=== PATIENT | male | born 1975 | race African-American/Black ===

== ENCOUNTER 2017-07-04 11:04 | Emergency (ER) | payer SELFPAY ==
[~2017-07-04] VITALS: Ht 190.5 cm; Wt 140.0 kg
[~2017-07-04 11:04] MED LIST: AMOXICILLIN 50500 MG PO; AMOXICILLIN875 MG PO; BLOOD PRESSURE PILL; CELEXA40 MG; CLEOCIN HC150 MG/CAP PO; CLINDAMYCIN150 MG PO; COREG 6.256.25 MG/TA PO; COREG12.5 MG PO; FLEXERIL 1010 MG/TAB PO; LORTAB 5/500 501 TAB PO; NAPROSYN500 MG PO; NO HOME MEDICATIONS; NORCO 325 MG-51 TAB PO; NORCO 325 MG-7.1 TAB PO; PERCOCET 325 MG1 TA2 PO; PROZAC40 MG PO; WELLBUTRIN 75MG75 MG PO; ZITHROMAX Z PA250 MG PO
[2017-07-04 11:24] VITALS: TEMP 98
[2017-07-04 12:03] LABS: BASO % 0.3 % (0.0-2.0); EOS # 0.2 (0.0-0.7); EOS % 3.4 % (0-4.0); GRAN # 3.3 (1.4-6.5); GRAN % 55.9 % (42.2-75.2); HEMATOCRIT 51.7 % (42.0-52.0); HEMOGLOBIN 16.5 g/dl (13.5-18.0); LYMPH # 1.8 (1.2-3.4); LYMPH % 30.9 % (20.0-51.0); MEAN CELL VOLUME 96 fl (80.0-100.0); MEAN CORPUSCULAR HEMOGLOBIN 31 pg (27.0-31.0); MEAN CORPUSCULAR HGB CONC 32 g/dl (33.0-37.0); MEAN PLATELET VOLUME 10.1 fl (7.4-10.4); MONO # 0.5 (0.1-0.6); MONO % 9.3 % (1.7-9.3); PLATELET COUNT 162 K/mm3 (130-400); RED BLOOD COUNT 5.41 M/mm3 (4.20-5.60); REDCELL DISTRIBUTION WIDTH-CV 15.2 % (11.5-14.5)
[2017-07-04] MEDS ORDERED: KLOR-CON M2020 MEQ PO (12:11)
[2017-07-04] MEDS ORDERED: NEURONTIN300 MG/CAP PO (12:11)
[2017-07-04] MEDS ORDERED: COREG 25MG25 MG/TAB PO (12:11)
[2017-07-04] MEDS ORDERED: ZOCOR 20MG20 MG PO (12:12)
[2017-07-04] MEDS ORDERED: GLUCOPHAGE500 MG/TAB PO (12:12)
[2017-07-04] MEDS ORDERED: PROZAC40 MG PO (12:13)
[2017-07-04] MEDS ORDERED: LASIX 40MG TABL40 MG PO (12:13)
[2017-07-04 12:14] LABS: ALANINE AMINOTRANSFERASE 41 U/L (21-72); ALBUMIN 4.3 gm/dL (3.5-5.0); ALKALINE PHOSPHATASE 85 U/L (50-136); ANION GAP 11 mmol/L (7-16); AST,SGOT 23 U/L (15-37); BILIRUBIN,TOTAL 0.9 mg/dL (0.0-1.0); BLOOD UREA NITROGEN 11 mg/dL (9-20); C-REACTIVE PROTEIN 0.6 mg/dL (0.0-0.9); CALCIUM 8.9 mg/dL (8.4-10.2); CARBON DIOXIDE 31 mmol/L (22-30); CHLORIDE 96 mmol/L (98-107); CREATININE, serum 0.78 mg/dL (0.66-1.25); GLUCOSE 129 mg/dL (74-106); POTASSIUM 4.4 mmol/L (3.4-5.0); SODIUM 139 mmol/L (137-145); TOTAL PROTEIN 7.9 gm/dL (6.4-8.2)
[2017-07-04] MEDS ORDERED: ADALAT CC30 MG PO (12:14)
[2017-07-04 12:26] LABS: TROPONIN-I < 0.012 ng/mL (0.000-0.034)
[2017-07-04] MEDS ORDERED: K-DUR20 MEQ PO (13:46)
[2017-07-04] MEDS ORDERED: ZITHROMAX 250M250 MG PO (13:46)
[2017-07-04] MEDS ORDERED: LASIX 20MG TABL20 MG PO (13:46)
[2017-07-04 14:23] VITALS: BP 138/81; PULSE 72
== END 2017-07-04 14:50 | disposition home or self-care (01) ==
LOC: COL.ER 11:04
PROVIDERS: Emergency Medicine
DX: J20.9 Acute bronchitis, unspecified (principal); R60.0 Localized edema; I10 Essential (primary) hypertension; E11.9 Type 2 diabetes mellitus without complications; E78.5 Hyperlipidemia, unspecified; F17.210 Nicotine dependence, cigarettes, uncomplicated; Z79.84 Long term (current) use of oral hypoglycemic drugs

== ENCOUNTER 2017-07-19 17:29 | Observation (INO) | payer OTHER ==
[2017-07-19] VITALS (130 sets, daily range): BP systolic 148; BP diastolic 97; PULSE 55; TEMP 97.4; O2SAT 89–100
[~2017-07-19] VITALS: Ht 190.7 cm; Wt 227.2 kg
[~2017-07-19 17:29] MED LIST changes: +ADALAT CC30 MG PO; +COREG 25MG25 MG/TAB PO; +GLUCOPHAGE500 MG/TAB PO; +K-DUR20 MEQ PO; +KLOR-CON M2020 MEQ PO; +LASIX 20MG TABL20 MG PO; +LASIX 40MG TABL40 MG PO; +NEURONTIN300 MG/CAP PO; +ZITHROMAX 250M250 MG PO; +ZOCOR 20MG20 MG PO
[2017-07-19 17:55] LABS: BASO % 0.6 % (0.0-2.0); EOS # 0.2 (0.0-0.7); EOS % 4.5 % (0-4.0); GRAN # 2.7 (1.4-6.5); GRAN % 50.2 % (42.2-75.2); HEMATOCRIT 49.1 % (42.0-52.0); HEMOGLOBIN 15.4 g/dl (13.5-18.0); LYMPH # 1.8 (1.2-3.4); LYMPH % 33.8 % (20.0-51.0); MEAN CELL VOLUME 95 fl (80.0-100.0); MEAN CORPUSCULAR HEMOGLOBIN 30 pg (27.0-31.0); MEAN CORPUSCULAR HGB CONC 31 g/dl (33.0-37.0); MEAN PLATELET VOLUME 10.3 fl (7.4-10.4); MONO # 0.6 (0.1-0.6); MONO % 10.5 % (1.7-9.3); PLATELET COUNT 197 K/mm3 (130-400); RED BLOOD COUNT 5.17 M/mm3 (4.20-5.60); REDCELL DISTRIBUTION WIDTH-CV 14.8 % (11.5-14.5)
[2017-07-19 18:08] LABS: ALANINE AMINOTRANSFERASE 43 U/L (21-72); ALKALINE PHOSPHATASE 77 U/L (50-136); ANION GAP 10 mmol/L (7-16); AST,SGOT 28 U/L (15-37); BILIRUBIN,TOTAL 0.7 mg/dL (0.0-1.0); BLOOD UREA NITROGEN 9 mg/dL (9-20); C-REACTIVE PROTEIN 0.9 mg/dL (0.0-0.9); CALCIUM 9.2 mg/dL (8.4-10.2); CARBON DIOXIDE 34 mmol/L (22-30); CHLORIDE 97 mmol/L (98-107); CREATININE, serum 0.81 mg/dL (0.66-1.25); GLUCOSE 173 mg/dL (74-106); SODIUM 141 mmol/L (137-145); TOTAL PROTEIN 7.5 gm/dL (6.4-8.2)
[2017-07-19 18:21] LABS: TROPONIN-I < 0.012 ng/mL (0.000-0.034)
[2017-07-19 19:39] LABS: ARTERIAL BLD GAS O2 SATURATION 90.7 % (92-100); ARTERIAL BLD GAS TCO2 CT 38.6; ARTERIAL BLOOD GAS BASE EXCESS 7.9 (-2-2); ARTERIAL BLOOD GAS HCO3 36.5 meq/L (22-26); ARTERIAL BLOOD GAS PCO2 67.5 mmHg (35-45); ARTERIAL BLOOD GAS PO2 57.6 mmHg (80-100); ARTERIAL BLOOD GAS pH 7.35 (7.35-7.45)
[2017-07-19 21:49] LABS: PROTHROMBIN TIME 11.2 SECONDS (9.7-12.8)
[2017-07-19 21:52] LABS: PARTIAL THROMBOPLASTIN TIME 35.2 SECONDS (26.0-37.0)
[2017-07-20] VITALS (795 sets, daily range): BP systolic 122–148; BP diastolic 58–98; PULSE 41–77; TEMP 97.8–99; O2SAT 84–100
[2017-07-20 00:06] LABS: ARTERIAL BLD GAS O2 SATURATION 94.2 % (92-100); ARTERIAL BLD GAS TCO2 CT 36.6; ARTERIAL BLOOD GAS BASE EXCESS 8.1 (-2-2); ARTERIAL BLOOD GAS HCO3 34.9 meq/L (22-26); ARTERIAL BLOOD GAS PCO2 55.7 mmHg (35-45); ARTERIAL BLOOD GAS PO2 68.6 mmHg (80-100); ARTERIAL BLOOD GAS pH 7.42 (7.35-7.45)
[2017-07-20 05:44] LABS: BASO % 0.4 % (0.0-2.0); EOS # 0.2 (0.0-0.7); EOS % 4.4 % (0-4.0); GRAN # 2.7 (1.4-6.5); GRAN % 50.2 % (42.2-75.2); HEMATOCRIT 51.3 % (42.0-52.0); HEMOGLOBIN 15.6 g/dl (13.5-18.0); LYMPH # 1.8 (1.2-3.4); LYMPH % 33.3 % (20.0-51.0); MEAN CELL VOLUME 99 fl (80.0-100.0); MEAN CORPUSCULAR HEMOGLOBIN 30 pg (27.0-31.0); MEAN CORPUSCULAR HGB CONC 30 g/dl (33.0-37.0); MEAN PLATELET VOLUME 10.6 fl (7.4-10.4); MONO # 0.6 (0.1-0.6); MONO % 11.5 % (1.7-9.3); PLATELET COUNT 201 K/mm3 (130-400); REDCELL DISTRIBUTION WIDTH-CV 14.9 % (11.5-14.5)
[2017-07-20 05:57] LABS: ALANINE AMINOTRANSFERASE 39 U/L (21-72); ALBUMIN 3.9 gm/dL (3.5-5.0); ALKALINE PHOSPHATASE 90 U/L (50-136); ANION GAP 7 mmol/L (7-16); AST,SGOT 26 U/L (15-37); BILIRUBIN,TOTAL 0.9 mg/dL (0.0-1.0); BLOOD UREA NITROGEN 8 mg/dL (9-20); CALCIUM 9.1 mg/dL (8.4-10.2); CARBON DIOXIDE 40 mmol/L (22-30); CHLORIDE 93 mmol/L (98-107); CHOLESTEROL 291 mg/dL (120-200); CHOLESTEROL RISK RATIO 12.6; CREATININE, serum 0.95 mg/dL (0.66-1.25); GLUCOSE 128 mg/dL (74-106); HDL CHOLESTEROL 23 mg/dL; LDL CHOLESTEROL 219 mg/dL; POTASSIUM 4.2 mmol/L (3.4-5.0); SODIUM 140 mmol/L (137-145); TOTAL PROTEIN 7.8 gm/dL (6.4-8.2); TRIGLYCERIDE 246 mg/dL
[2017-07-20 06:08] LABS: TROPONIN-I < 0.012 ng/mL (0.000-0.034)
[2017-07-21] VITALS (7 sets, daily range): BP systolic 105–128; BP diastolic 64–75; PULSE 47–57; TEMP 97–98.6
[2017-07-21 07:40] LABS: BASO % 0.3 % (0.0-2.0); EOS # 0.2 (0.0-0.7); GRAN # 3.3 (1.4-6.5); GRAN % 54.9 % (42.2-75.2); HEMATOCRIT 50.7 % (42.0-52.0); HEMOGLOBIN 15.7 g/dl (13.5-18.0); LYMPH % 32.4 % (20.0-51.0); MEAN CELL VOLUME 97 fl (80.0-100.0); MEAN CORPUSCULAR HEMOGLOBIN 30 pg (27.0-31.0); MEAN CORPUSCULAR HGB CONC 31 g/dl (33.0-37.0); MEAN PLATELET VOLUME 10.5 fl (7.4-10.4); MONO # 0.5 (0.1-0.6); MONO % 8.1 % (1.7-9.3); PLATELET COUNT 205 K/mm3 (130-400); RED BLOOD COUNT 5.22 M/mm3 (4.20-5.60); REDCELL DISTRIBUTION WIDTH-CV 14.7 % (11.5-14.5)
[2017-07-21 07:58] LABS: CALCIUM 8.8 mg/dL (8.4-10.2); CREATININE, serum 0.87 mg/dL (0.66-1.25); POTASSIUM 3.6 mmol/L (3.4-5.0)
[2017-07-21] MEDS ORDERED: SEROQUEL 200MG200 MG PO (08:01)
[2017-07-21] MEDS ORDERED: SEROQUEL 1100 MG/TAB PO (08:02)
[2017-07-22] VITALS (8 sets, daily range): BP systolic 121–146; BP diastolic 74–93; PULSE 60–87; TEMP 97.7–98.4
[2017-07-22] MEDS ORDERED: NITROSTAT0.4 MG/TAB SL (11:09)
[2017-07-22] MEDS ORDERED: LIPITOR 40MG TA40 MG PO (11:09)
[2017-07-22] MEDS ORDERED: COREG 25MG25 MG/TAB PO (11:15)
[2017-07-22] MEDS ORDERED: ASPI325T6 PO (11:15)
== END 2017-07-22 16:10 | disposition home or self-care (01) ==
LOC: COL.ER 17:29 → MEDICAL 19:20 → ICU 20:10 → MEDICAL 07-20 14:00
PROVIDERS: Emergency Medicine; Internal Medicine; Nurse Practitioner Family
DX: R06.02 Shortness of breath (principal); R07.89 Other chest pain; R60.0 Localized edema; I10 Essential (primary) hypertension; E78.5 Hyperlipidemia, unspecified; E11.9 Type 2 diabetes mellitus without complications; F31.9 Bipolar disorder, unspecified; M86.9 Osteomyelitis, unspecified; E87.2 Acidosis; E66.01 Morbid (severe) obesity due to excess calories; I07.1 Rheumatic tricuspid insufficiency; F17.210 Nicotine dependence, cigarettes, uncomplicated; R09.02 Hypoxemia; Z79.4 Long term (current) use of insulin; Z79.84 Long term (current) use of oral hypoglycemic drugs; Z88.2 Allergy status to sulfonamides; Z88.0 Allergy status to penicillin; Z88.1 Allergy status to other antibiotic agents; Z79.82 Long term (current) use of aspirin; Z89.429 Acquired absence of other toe(s), unspecified side; Z80.0 Family history of malignant neoplasm of digestive organs; Z82.61 Family history of arthritis; Z83.3 Family history of diabetes mellitus; Z82.49 Family history of ischemic heart disease and other diseases of the circulatory system; Z82.0 Family history of epilepsy and other diseases of the nervous system
CPT/HCPCS: 99223-AI; 99232-AI; A9502; G0378; J1650; J1940; J2785; Q9967

== ENCOUNTER 2018-04-30 20:58 | Emergency (ER) | payer SELFPAY ==
[~2018-04-30] VITALS: Ht 193 cm; Wt 150.0 kg
[~2018-04-30 20:58] MED LIST changes: +ASPI325T6 PO; +LIPITOR 40MG TA40 MG PO; +NITROSTAT0.4 MG/TAB SL; +SEROQUEL 1100 MG/TAB PO; +SEROQUEL 200MG200 MG PO
[2018-04-30 21:03] VITALS: BP 139/92; TEMP 97.6
[2018-04-30] MEDS ORDERED: NEURONTIN600 MG/TAB PO (21:32)
[2018-04-30] MEDS ORDERED: COREG 25MG25 MG/TAB PO (21:32)
[2018-04-30] MEDS ORDERED: PROZAC40 MG PO (21:59)
[2018-04-30] MEDS ORDERED: GLUCOPHAGE1000 MG PO (21:59)
[2018-04-30 22:45] VITALS: PULSE 76
== END 2018-04-30 22:45 | disposition home or self-care (01) ==
LOC: COL.ER 20:58
DX: R11.0 Nausea (principal); R21 Rash and other nonspecific skin eruption; E11.65 Type 2 diabetes mellitus with hyperglycemia; I10 Essential (primary) hypertension; Z79.82 Long term (current) use of aspirin; Z79.84 Long term (current) use of oral hypoglycemic drugs

== ENCOUNTER 2018-05-17 20:32 | Emergency (ER) | payer SELFPAY ==
[~2018-05-17] VITALS: Ht 193 cm; Wt 150.0 kg
[~2018-05-17 20:32] MED LIST changes: +GLUCOPHAGE1000 MG PO; +NEURONTIN600 MG/TAB PO
[2018-05-17 20:38] VITALS: BP 121/83; TEMP 98.1
[2018-05-17 21:02] LABS: BASO % 0.6 % (0.0-2.0); EOS # 0.2 (0.0-0.7); EOS % 2.6 % (0-4.0); GRAN # 2.9 (1.4-6.5); GRAN % 47.2 % (42.2-75.2); HEMATOCRIT 50.1 % (42.0-52.0); HEMOGLOBIN 16.5 g/dl (13.5-18.0); LYMPH # 2.6 (1.2-3.4); LYMPH % 41.3 % (20.0-51.0); MEAN CELL VOLUME 90 fl (80.0-100.0); MEAN CORPUSCULAR HEMOGLOBIN 30 pg (27.0-31.0); MEAN CORPUSCULAR HGB CONC 33 g/dl (33.0-37.0); MEAN PLATELET VOLUME 11.4 fl (7.4-10.4); MONO # 0.5 (0.1-0.6); MONO % 8.1 % (1.7-9.3); PLATELET COUNT 175 K/mm3 (130-400); RED BLOOD COUNT 5.58 M/mm3 (4.20-5.60); REDCELL DISTRIBUTION WIDTH-CV 13.1 % (11.5-14.5)
[2018-05-17 21:20] LABS: BILIRUBIN,TOTAL 1.3 mg/dL (0.0-1.0); CALCIUM 9.4 mg/dL (8.4-10.2); CREATININE, serum 0.94 mg/dL (0.66-1.25); POTASSIUM 4.2 mmol/L (3.4-5.0); TOTAL PROTEIN 7.3 gm/dL (6.4-8.2)
[2018-05-17 21:42] LABS: COLLECTION METHOD CLEAN CATCH
[2018-05-17 21:47] LABS: MUCOUS Present /lpf; PH 6 (5-8); SQUAMOUS EPITHELIAL None Seen /hpf; URINE APPEARANCE Clear; URINE BACTERIA None Seen /hpf; URINE BILIRUBIN Negative (NEGATIVE); URINE BLOOD Negative (NEGATIVE); URINE COLOR Yellow; URINE GLUCOSE 3+ (NEGATIVE); URINE KETONE Negative (NEGATIVE); URINE LEUKOCYTE ESTERASE Negative (NEGATIVE); URINE NITRATE Negative (NEGATIVE); URINE PROTEIN(semi-quant) Negative (NEGATIVE); URINE RBC 0-2 /hpf
[2018-05-17] MEDS ORDERED: DIABETA 5MG5 MG/TAB PO (22:05)
[2018-05-18 01:20] VITALS: PULSE 70
== END 2018-05-18 01:20 | disposition home or self-care (01) ==
LOC: COL.ER 20:32
PROVIDERS: Emergency Medicine
DX: E11.65 Type 2 diabetes mellitus with hyperglycemia (principal); Z79.84 Long term (current) use of oral hypoglycemic drugs
CPT/HCPCS: J1815; J7030

== ENCOUNTER 2018-05-28 20:41 | Emergency (ER) | payer SELFPAY ==
[~2018-05-28] VITALS: Ht 193 cm; Wt 150.0 kg
[~2018-05-28 20:41] MED LIST changes: +DIABETA 5MG5 MG/TAB PO
[2018-05-28 20:44] VITALS: BP 179/100; TEMP 98
[2018-05-28] MEDS ORDERED: DOXYCYCLINE 10100 MG PO (21:30)
[2018-05-28 21:48] VITALS: PULSE 63
== END 2018-05-28 21:50 | disposition home or self-care (01) ==
LOC: COL.ER 20:41
DX: L03.031 Cellulitis of right toe (principal); E11.51 Type 2 diabetes mellitus with diabetic peripheral angiopathy without gangrene; Z79.84 Long term (current) use of oral hypoglycemic drugs

== ENCOUNTER 2018-06-26 23:52 | Emergency (ER) | payer SELFPAY ==
[~2018-06-26] VITALS: Ht 193 cm; Wt 150.0 kg
[~2018-06-26 23:52] MED LIST changes: +DOXYCYCLINE 10100 MG PO
[2018-06-27 00:01] VITALS: BP 144/73; PULSE 63; TEMP 98.7
[2018-06-27] MEDS ORDERED: PROZAC40 MG PO (01:17)
[2018-06-27] MEDS ORDERED: OMNICEF 300MG300 MG PO (02:06)
[2018-06-27] MEDS ORDERED: DOXYCYCLINE 10100 MG PO (02:06)
== END 2018-06-27 02:40 | disposition home or self-care (01) ==
LOC: COL.ER 23:52
DX: E11.621 Type 2 diabetes mellitus with foot ulcer (principal); F17.210 Nicotine dependence, cigarettes, uncomplicated; Z79.84 Long term (current) use of oral hypoglycemic drugs

== ENCOUNTER 2018-07-13 21:42 | Emergency (ER) | payer SELFPAY ==
[~2018-07-13] VITALS: Ht 193 cm; Wt 149.5 kg
[~2018-07-13 21:42] MED LIST changes: +CLEOCIN HCL300 MG PO; +OMNICEF 300MG300 MG PO
[2018-07-13 21:44] VITALS: BP 180/98; PULSE 96; TEMP 98
== END 2018-07-13 22:27 | disposition home or self-care (01) ==
LOC: COL.ER 21:42
DX: M79.672 Pain in left foot (principal); E11.9 Type 2 diabetes mellitus without complications; Z89.422 Acquired absence of other left toe(s); Z79.84 Long term (current) use of oral hypoglycemic drugs; F17.210 Nicotine dependence, cigarettes, uncomplicated

== ENCOUNTER 2018-07-20 21:30 | Emergency (ER) | payer SELFPAY ==
[~2018-07-20] VITALS: Ht 193 cm; Wt 149.5 kg
[2018-07-21 00:06] VITALS: BP 165/102; PULSE 81
== END 2018-07-21 00:12 | disposition home or self-care (01) ==
LOC: COL.ER 21:30
DX: M25.531 Pain in right wrist (principal); E11.9 Type 2 diabetes mellitus without complications; I10 Essential (primary) hypertension; F41.9 Anxiety disorder, unspecified; F32.9 Major depressive disorder, single episode, unspecified; F17.210 Nicotine dependence, cigarettes, uncomplicated; Z79.84 Long term (current) use of oral hypoglycemic drugs

== ENCOUNTER 2018-09-01 20:32 | Emergency (ER) | payer MEDICAID ==
[~2018-09-01] VITALS: Ht 193 cm; Wt 150.0 kg
[2018-09-01 20:50] VITALS: BP 138/79; PULSE 72; TEMP 97.7
[2018-09-01] MEDS ORDERED: NORCO 325 MG-51 TAB PO (21:39)
[2018-09-01] MEDS ORDERED: CLEOCIN HCL300 MG PO (21:39)
== END 2018-09-01 23:23 | disposition home or self-care (01) ==
LOC: COL.ER 20:32
DX: K02.9 Dental caries, unspecified (principal); E11.9 Type 2 diabetes mellitus without complications; I10 Essential (primary) hypertension; E66.9 Obesity, unspecified; F31.9 Bipolar disorder, unspecified; E78.5 Hyperlipidemia, unspecified; F17.210 Nicotine dependence, cigarettes, uncomplicated; Z88.0 Allergy status to penicillin; Z88.1 Allergy status to other antibiotic agents; Z79.84 Long term (current) use of oral hypoglycemic drugs

== ENCOUNTER 2018-09-25 10:20 | Emergency (ER) | payer MEDICAID ==
[~2018-09-25] VITALS: Ht 193 cm; Wt 150.0 kg
[2018-09-25 10:28] VITALS: TEMP 98.1
[2018-09-25] MEDS ORDERED: DIABETA 5MG5 MG/TAB PO (11:07)
[2018-09-25] MEDS ORDERED: NEURONTIN600 MG/TAB PO (11:07)
[2018-09-25 12:14] VITALS: BP 140/91; PULSE 84
== END 2018-09-25 12:15 | disposition home or self-care (01) ==
LOC: COL.ER 10:20
DX: G43.909 Migraine, unspecified, not intractable, without status migrainosus (principal); E11.9 Type 2 diabetes mellitus without complications; I10 Essential (primary) hypertension; F17.210 Nicotine dependence, cigarettes, uncomplicated; Z87.442 Personal history of urinary calculi; Z79.84 Long term (current) use of oral hypoglycemic drugs
CPT/HCPCS: J1200; J1885; J2765; J7030

== ENCOUNTER 2018-10-05 20:37 | Inpatient (IN) | payer MEDICAID ==
[~2018-10-05] VITALS: Ht 193 cm; Wt 159.3 kg
[2018-10-05 21:41] LABS: BASO % 0.4 % (0.0-2.0); EOS # 0.2 (0.0-0.7); EOS % 2.8 % (0-4.0); GRAN % 55.1 % (42.2-75.2); HEMOGLOBIN 16.3 g/dl (13.5-18.0); LYMPH # 2.2 (1.2-3.4); LYMPH % 30.1 % (20.0-51.0); MEAN CELL VOLUME 95 fl (80.0-100.0); MEAN CORPUSCULAR HEMOGLOBIN 29 pg (27.0-31.0); MEAN CORPUSCULAR HGB CONC 31 g/dl (33.0-37.0); MEAN PLATELET VOLUME 10.3 fl (7.4-10.4); MONO # 0.8 (0.1-0.6); PLATELET COUNT 178 K/mm3 (130-400); RED BLOOD COUNT 5.54 M/mm3 (4.20-5.60); REDCELL DISTRIBUTION WIDTH-CV 15.5 % (11.5-14.5)
[2018-10-05 21:44] LABS: HEMATOCRIT 52.8 % (42.0-52.0)
[2018-10-05 21:54] LABS: ALANINE AMINOTRANSFERASE 21 U/L (21-72); ALKALINE PHOSPHATASE 86 U/L (50-136); ANION GAP 7 mmol/L (7-16); AST,SGOT 23 U/L (15-37); BILIRUBIN,TOTAL 0.7 mg/dL (0.0-1.0); BLOOD UREA NITROGEN 11 mg/dL (9-20); C-REACTIVE PROTEIN 1.2 mg/dL (0.0-0.9); CARBON DIOXIDE 38 mmol/L (22-30); CHLORIDE 95 mmol/L (98-107); CREATININE, serum 0.88 (0.66-1.25); GLUCOSE 75 mg/dL (74-106); POTASSIUM 4.4 mmol/L (3.4-5.0); SODIUM 141 mmol/L (137-145)
[2018-10-05 21:54] LABS: ARTERIAL BLD GAS O2 SATURATION 90.4 % (92-100); ARTERIAL BLD GAS TCO2 CT 37.8; ARTERIAL BLOOD GAS BASE EXCESS 7.7 (-2-2); ARTERIAL BLOOD GAS HCO3 35.8 meq/L (22-26); ARTERIAL BLOOD GAS PCO2 63.4 mmHg (35-45); ARTERIAL BLOOD GAS PO2 58.1 mmHg (80-100); ARTERIAL BLOOD GAS pH 7.37 (7.35-7.45)
[2018-10-05 22:05] LABS: TROPONIN-I < 0.012 ng/mL (0.000-0.035)
[2018-10-06] VITALS (1312 sets, daily range): BP systolic 102–163; BP diastolic 61–105; PULSE 54–117; TEMP 97.7–97.9; O2SAT 78–100
--- NOTE | 2018-10-06 | NUR ---
Received phone report from Bertrand AMARAL in ED.
--- NOTE | 2018-10-06 00:10 | NUR ---
Pt arrived via stretcher from ED X1 staff assist. Pt appears to be lethargic and is on 4L NC at this time. Pt still in street clothes so on transfer to ICU bed pt was switched to hospital gown although refused to remove shorts. Pt is partially edentulous.
[2018-10-06] MEDS ORDERED: ADALAT CC30 MG PO (00:29)
--- NOTE | 2018-10-06 01:00 | NUR ---
When talking to the patient while obtaining Admission B assessment history pt would be noted resting in bed with eyes closed and after a few moments pts name would be said in order to obtain attention or pt would open eyes and see this nurse and ask "what" with eyes open wide. This happened multiple times although pt remained A&O to questions through out.
--- NOTE | 2018-10-06 01:30 | NUR ---
Upon questioning the pt regarding suicide assessment questions pt reported "every day" in response to thoughts of wanting to end ones life. This nurse asked if there was a plan in action and pt replied "yes but not one I am able to afford." This nurse then inquired about reason behind feelings and pt replied "pain, family, my kids live away and I cant talk to them." Pt denied taking any current medications for Bipolar. Stated to get them it was to difficult and "you have to talk to people like go to therapy and wait another 30 days before you get anything."
[2018-10-06 04:18] LABS: ARTERIAL BLD GAS TCO2 CT 43.6; ARTERIAL BLOOD GAS BASE EXCESS 9.4 (-2-2); ARTERIAL BLOOD GAS HCO3 40.8 meq/L (22-26); ARTERIAL BLOOD GAS PO2 78.3 mmHg (80-100); ARTERIAL BLOOD GAS pH 7.26 (7.35-7.45)
[2018-10-06 04:33] LABS: ARTERIAL BLOOD GAS PCO2 92.5 mmHg (35-45)
--- NOTE | 2018-10-06 04:55 | NUR ---
Pt was noted to not have Bipap mask off. Pt expressed pain and frustration about the pain experienced with Bipap air on eyes and hurting teeth and "nothing is being done about it". Pt also reported that "at [facility] I have never had this problem. They just do what needs to be done." This nurse then asked the pt if at [facility] the teeth pain was like this and pt reported "not this bad, I was there when they cut off my toes." Pt was asked if dentist has been consulted for teeth and pt reported "I havent been able to get in to see anyone."
--- NOTE | 2018-10-06 05:19 | NUR ---
PLACE PT ON BIPAP IN ER AFTER FIRST ABG RESULTS. PT WAS ON 03/25 RR 18. PT TOLERATES WELL IN ER. PT IS TRANSFERED FROM ER TO ICU. HE WANTS TO EAT, HE WAS ON HFNC 6L. IT LASTED FOR AN HOUR. RT PLACED PT BACK ON BIPAP AFTER HE ATE. REPEAT ANOTHER ABG AROUND 4PM .PH 7.26 CO2 92 . NURSE PRACTIONNER NOTIFIED AND RT CHANGE BIPAP SETTING 09/02 R 18. PT IS NOT COMPLIANT WITH BIPAP,BUT HE IS ASKING MORE ABOUT PAIN MED. ENCOURAGE PT TO WEAR BIPAP . PAIN MED WAS GIVEN BY NURSE .PT IS WILLING TO WEAR BIPAP. HE IS ON NOW. WILL REPEAT ABG. RT TRIED TO GET HOLD OF EC[facility],BUT WAS BUSY ON PHONE. WAITING FOR CALL BACK
[2018-10-06 05:30] LABS: BASO % 0.3 % (0.0-2.0); EOS # 0.2 (0.0-0.7); EOS % 2.6 % (0-4.0); GRAN # 4.1 (1.4-6.5); GRAN % 59.2 % (42.2-75.2); HEMATOCRIT 51.9 % (42.0-52.0); LYMPH % 29.4 % (20.0-51.0); MEAN CELL VOLUME 95 fl (80.0-100.0); MEAN CORPUSCULAR HEMOGLOBIN 29 pg (27.0-31.0); MEAN CORPUSCULAR HGB CONC 31 g/dl (33.0-37.0); MEAN PLATELET VOLUME 10.4 fl (7.4-10.4); MONO # 0.6 (0.1-0.6); MONO % 8.2 % (1.7-9.3); PLATELET COUNT 181 K/mm3 (130-400); RED BLOOD COUNT 5.44 M/mm3 (4.20-5.60); REDCELL DISTRIBUTION WIDTH-CV 15.7 % (11.5-14.5)
[2018-10-06 05:39] LABS: CALCIUM 8.9 mg/dL (8.4-10.2); CHOLESTEROL RISK RATIO 11.7; CREATININE, serum 0.89 (0.66-1.25)
[2018-10-06 06:06] LABS: ARTERIAL BLD GAS O2 SATURATION 90.4 % (92-100); ARTERIAL BLD GAS TCO2 CT 40.3; ARTERIAL BLOOD GAS BASE EXCESS 8.1 (-2-2); ARTERIAL BLOOD GAS HCO3 37.9 meq/L (22-26); ARTERIAL BLOOD GAS PO2 61.3 mmHg (80-100); ARTERIAL BLOOD GAS pH 7.32 (7.35-7.45)
[2018-10-06 06:07] LABS: ARTERIAL BLOOD GAS PCO2 75.5 mmHg (35-45)
--- NOTE | 2018-10-06 07:00 | NUR ---
Report provided to Domo AMARAL. Pt resting quietly on the Bipap at this time.
--- NOTE | 2018-10-06 07:51 | NUR ---
Shift assessment complete at this time. Plan of care reviewed at bedside with patient. Additional time taken to address any other needs or concerns. Pt reports mild to moderate pain at an intensity of 4-5/10. Pt reports that a 4 is a tolerable goal. Pt falls asleep easily mid conversation with this RN. Pt has not voided since arrival to unit. Pt states that he does not feel that he has to void at this time, but is willing to attempt to void in an hour. Vitals stable at this time and afebrile. Bed in low and locked position, call light within reach. Will continue to monitor.
--- NOTE | 2018-10-06 10:54 | NUR ---
Bladder scan noted 490 mL of urine in bladder. Pt states he does not feel the need to void at this time. Reported findings to Dr. Loaiza as requested. Provider gave verbal order to place jimenez catheter. Pt refused jiemnez catheter placement. Provider aware of refusal, will continue to monitor.
[2018-10-06 11:05] LABS: ARTERIAL BLD GAS O2 SATURATION 96.3 % (92-100); ARTERIAL BLD GAS TCO2 CT 35.7; ARTERIAL BLOOD GAS BASE EXCESS 6.2 (-2-2); ARTERIAL BLOOD GAS HCO3 33.8 meq/L (22-26); ARTERIAL BLOOD GAS PCO2 60.4 mmHg (35-45); ARTERIAL BLOOD GAS PO2 82.4 mmHg (80-100); ARTERIAL BLOOD GAS pH 7.37 (7.35-7.45)
--- NOTE | 2018-10-06 11:15 | NUR ---
SW met with the patient to discuss a discharge plan. The pt lives in [place] with three cousins. The pt does on use DME and reports independence with ADLs. The pt does not have a PCP and receives his medications from [facility]. The pt may need a voucher if insurance does not cover his medications at discharge. The pt does not have advanced directives in the EMR and was not interested in obtaining a DPOA-HC form. The pt plans to return home upon discharge. The pt's cousin Krissy Andrews will provide transportation. SW to provide a list physicians and clinic to the patient. SW will continue to follow to assist with any discharge needs. Krissy Andrews (cousin)
--- NOTE | 2018-10-06 12:00 | NUR ---
Shift reassessment complete at this time. No changes from previous assessment. Pt still feels like he does not need to void. Will continue to monitor per direction of Dr. Loaiza. Vitals stable at this time. Pt reports breathing is improving while on Bi-Pap. Reports back/neck pain as tolerable. Previously administered Toradol helping. Bed in low position, call light within reach. Will continue to monitor.
--- NOTE | 2018-10-06 13:00 | NUR ---
With sterile technique right upper arm PICC dressing change done and insertion site cleansed with chloraprep x 1, catheter pulled to 3 cm marking on catheter for a total of 4 cm pulled back. skin prep, stat lock, chlorhexidine impregnated disk applied, and tegaderm applied. no signs or symptoms of IV complications noted. no concerns voiced. re-wrapped with isaac to protect catheter.
--- NOTE | 2018-10-06 16:00 | NUR ---
Shift reassessment complete at this time. No changes noted from previous assessments. Vitals stable. Pt reports oxygenation continuing to improve. Now on 45% BiPap. Reports pain as tolerable. Declines any further intervention. Pt states he will need to void soon. Will continue to monitor. Bed in low poisition, call light within reach.
--- NOTE | 2018-10-06 19:09 | NUR ---
Bedside report given to MUNIR Ramos.
--- NOTE | 2018-10-06 19:10 | NUR ---
Report received from Domo AMARAL.
[2018-10-07] VITALS (430 sets, daily range): BP systolic 111–152; BP diastolic 65–87; PULSE 89–105; TEMP 97.5–98.6; O2SAT 63–100
--- NOTE | 2018-10-07 02:20 | NUR ---
Pt resting in bed with television on. Cell phone plugged in per pts request. Pt started talking to this nurse approximately 0140 following assessment and medication administration and this nurse excused herself following discussion of ex, kids, and the of mother, sister, grandmother and father.
[2018-10-07 05:39] LABS: BASO % 0.1 % (0.0-2.0); GRAN # 10.2 (1.4-6.5); GRAN % 88.7 % (42.2-75.2); HEMATOCRIT 49.9 % (42.0-52.0); HEMOGLOBIN 15.6 g/dl (13.5-18.0); LYMPH % 8.6 % (20.0-51.0); MEAN CELL VOLUME 93 fl (80.0-100.0); MEAN CORPUSCULAR HEMOGLOBIN 29 pg (27.0-31.0); MEAN CORPUSCULAR HGB CONC 31 g/dl (33.0-37.0); MEAN PLATELET VOLUME 10.6 fl (7.4-10.4); MONO # 0.2 (0.1-0.6); PLATELET COUNT 198 K/mm3 (130-400); RED BLOOD COUNT 5.38 M/mm3 (4.20-5.60); REDCELL DISTRIBUTION WIDTH-CV 15.1 % (11.5-14.5)
[2018-10-07 05:43] LABS: ARTERIAL BLD GAS O2 SATURATION 94.5 % (92-100); ARTERIAL BLD GAS TCO2 CT 30.9; ARTERIAL BLOOD GAS BASE EXCESS 3.6 (-2-2); ARTERIAL BLOOD GAS HCO3 29.4 meq/L (22-26); ARTERIAL BLOOD GAS PCO2 48.4 mmHg (35-45); ARTERIAL BLOOD GAS PO2 74.3 mmHg (80-100)
[2018-10-07 05:44] LABS: CALCIUM 9.2 mg/dL (8.4-10.2); CREATININE, serum 0.95 (0.66-1.25); MAGNESIUM 1.7 mg/dL (1.6-2.3); PHOSPHOROUS 1.8 mg/dL (2.5-4.5); POTASSIUM 4.3 mmol/L (3.4-5.0)
--- NOTE | 2018-10-07 07:00 | NUR ---
Bedside report provided to Nova AMARAL. Pt resting in bed at this time. Awake and responding during report. Pt refused Bipap during the night with RT and remains on a high flow NC.
--- NOTE | 2018-10-07 07:00 | NUR ---
Bedside report received from UMNIR Ramos. Patient is awake and alert. He has no complaints. SPo2 is 100%. He is turned from 7L O2 to 5L O2. Plan of care is reviewed. Care taken over at this time.
--- NOTE | 2018-10-07 08:00 | NUR ---
Patient's O2 turned down to 3L O2. Current SPO2 is 99%
--- NOTE | 2018-10-07 08:30 | NUR ---
RT states that she turns pt's O2 to 2L/min. Will continue to monitor
--- NOTE | 2018-10-07 10:17 | NUR ---
Initial visit; Patient thanked [employer] for looking in on him, wishing him well and keeping him in her prayers.
--- NOTE | 2018-10-07 12:14 | NUR ---
REPORT CALLED TO MUNIR MILAN PATIENT WILL GO TO ROOM 353
--- NOTE | 2018-10-07 17:45 | NUR ---
Pt up from the ICU this afternoon, he has been resting and napping since arriving to the floor, PRN Toladol requested by Pt and administered.
--- NOTE | 2018-10-07 21:30 | NUR ---
PT RESTING IN BED A+OX4. REPORTS BACK PAIN, PRN MEDS GIVEN. PT BG LEVEL 131- NO INSULIN REQUIRED. APUTATION OF THE RIGHT FIRST 3 TOES, NOTED. PICC FLUSHES WELL, BLOOD RETURN NOTED X2. NO NEEDS AT THIS TIME. CALL LIGHT IN REACH
[2018-10-08 02:47] VITALS: BP 135/78; PULSE 74; TEMP 97.5
--- NOTE | 2018-10-08 04:28 | NUR ---
PT RESTING IN BED, PT DROWSY. PT REFUSED BIPAP. NO PAIN REPORTED. VSS. PT SLEEPING WITH NO NEEDS AT THIS TIME, CALL LIGHT IN REACH
--- NOTE | 2018-10-08 05:37 | NUR ---
PT HAD AN UNEVENTFUL NIGHT. REFUSED BIPAP. VSS. PICC FLUSHES WELL, BLOOD RETURN NOTED X2. PT BLOOD GLUCOSE WNL- NO INSULIN REQUIRED PER ORDER. 7/10 PAIN REPORTED - PRN PAIN MEDS GIVEN. PT ON 1.5L VIA NC- SAT >90%. NO NEEDS AT THIS TIME. CALL LIGHT IN REACH
--- NOTE | 2018-10-08 06:52 | NUR ---
REPORT GIVEN TO MUNIR MILAN. PT SLEEPING AT THIS TIME
--- NOTE | 2018-10-08 07:15 | NUR ---
Report received from MUNIR Wall.
[2018-10-08 09:37] VITALS: BP 118/65; PULSE 72; TEMP 99.8
--- NOTE | 2018-10-08 09:41 | NUR ---
Pt in bed awake and alert, some C/O pain in back, states desire to go home, shift assessments complete, left Pt call light in reach, bed in lowest position.
[2018-10-08] MEDS ORDERED: PREDNISONE10 MG PO (11:30)
[2018-10-08] MEDS ORDERED: RISPERDAL 1M1 MG/TAB PO (11:31)
[2018-10-08] MEDS ORDERED: PROZAC 20MG20 MG PO (11:32)
[2018-10-08] MEDS ORDERED: PROAIR HFA0.09 MG/AC IH (11:33)
[2018-10-08] MEDS ORDERED: 00186-0372-20 IH (11:35)
[2018-10-08 12:49] VITALS: BP 140/81; PULSE 80; TEMP 99.6
--- NOTE | 2018-10-08 14:45 | NUR ---
Patient will discharge home today. Patient will require home O2. Patient reports he has used [facility] in the past and would prefer for them to supply his O2. JOURDAN presented choice form. Patient signed. JOURDAN faxed O2 order to [facility]. [facility] will deliver an O2 tank for discharge.
--- NOTE | 2018-10-08 14:47 | NUR ---
SW also followed up with patient about psych eval and recommendations. Patient reports he plans to contact [facility] to schedule an appointment.
--- NOTE | 2018-10-08 18:04 | NUR ---
Pt discharged to home, escorted to [facility] and transported by private auto.
== END 2018-10-08 18:05 | disposition home or self-care (01) | DRG 205 ==
LOC: COL.ER 20:37 → ICU 22:34 → MEDICAL 22:34 → ICU 10-07 11:22 → MEDICAL 10-07 12:36
PROVIDERS: Emergency Medicine; Internal Medicine Pulmonary Disease; Nurse Practitioner; ADMIT Family Medicine
PROC: 02HV33Z Insertion of Infusion Device into Superior Vena Cava, Percutaneous Approach (ICD-10-PCS; principal; 2018-10-06)
DX: E66.2 Morbid (severe) obesity with alveolar hypoventilation (principal); J96.22 Acute and chronic respiratory failure with hypercapnia; J96.21 Acute and chronic respiratory failure with hypoxia; Z68.41 Body mass index [BMI] 40.0-44.9, adult; Z99.81 Dependence on supplemental oxygen; I10 Essential (primary) hypertension; E78.5 Hyperlipidemia, unspecified; F31.9 Bipolar disorder, unspecified; F17.210 Nicotine dependence, cigarettes, uncomplicated; Z88.0 Allergy status to penicillin; Z88.2 Allergy status to sulfonamides; Z66 Do not resuscitate; E11.42 Type 2 diabetes mellitus with diabetic polyneuropathy; Z79.84 Long term (current) use of oral hypoglycemic drugs; E11.51 Type 2 diabetes mellitus with diabetic peripheral angiopathy without gangrene; Z89.429 Acquired absence of other toe(s), unspecified side; F41.1 Generalized anxiety disorder
CPT/HCPCS: 99223-AI; 99233-AI; C1751; C1892; J1650; J1885; J2930; J3475; J7050; J7512

== ENCOUNTER → 2018-12-11 | Outpatient (CLI) | payer MEDICAID ==
[~2018-12-11] MED LIST changes: +00186-0372-20 IH; +PREDNISONE10 MG PO; +PROAIR HFA0.09 MG/AC IH; +PROZAC 20MG20 MG PO; +RISPERDAL 1M1 MG/TAB PO
[2018-12-11 12:19] LABS: CALCIUM 9.8 mg/dL (8.4-10.2); CREATININE, serum 0.85 (0.66-1.25); POTASSIUM 4.3 mmol/L (3.4-5.0)
== END ==
LOC: ZCOL.LAB 12:01
PROVIDERS: Family Medicine
DX: I10 Essential (primary) hypertension (principal)

== ENCOUNTER → 2019-01-15 | Outpatient (CLI) | payer MEDICAID | LOC: COL.RAD 07:28 | DX: M54.5 Low back pain (principal); G89.29 Other chronic pain ==

== ENCOUNTER 2019-01-31 18:36 | Emergency (ER) | payer MEDICAID ==
[~2019-01-31] VITALS: Ht 193 cm; Wt 159.5 kg
[2019-01-31 18:43] VITALS: TEMP 97.1
[2019-01-31 19:23] LABS: BASO % 0.5 % (0.0-2.0); EOS # 0.2 (0.0-0.7); EOS % 3.4 % (0-4.0); GRAN % 48.8 % (42.2-75.2); LYMPH # 2.3 (1.2-3.4); LYMPH % 37.7 % (20.0-51.0); MEAN CELL VOLUME 90 fl (80.0-100.0); MEAN CORPUSCULAR HGB CONC 33 g/dl (33.0-37.0); MEAN PLATELET VOLUME 12.1 fl (7.4-10.4); MONO # 0.6 (0.1-0.6); MONO % 9.3 % (1.7-9.3); PLATELET COUNT 215 K/mm3 (130-400); REDCELL DISTRIBUTION WIDTH-CV 13.7 % (11.5-14.5)
[2019-01-31 19:24] LABS: HEMOGLOBIN 18.3 g/dl (13.5-18.0); MEAN CORPUSCULAR HEMOGLOBIN 30 pg (27.0-31.0)
[2019-01-31 19:29] LABS: ALANINE AMINOTRANSFERASE 90 U/L (21-72); ALBUMIN 4.4 gm/dL (3.5-5.0); ALKALINE PHOSPHATASE 105 U/L (50-136); ANION GAP 14 mmol/L (7-16); AST,SGOT 56 U/L (15-37); BILIRUBIN,TOTAL 1.4 mg/dL (0.0-1.0); BLOOD UREA NITROGEN 20 mg/dL (9-20); CALCIUM 9.6 mg/dL (8.4-10.2); CARBON DIOXIDE 26 mmol/L (22-30); CHLORIDE 93 mmol/L (98-107); CREATININE, serum 1.39 (0.66-1.25); SODIUM 133 mmol/L (137-145); TOTAL PROTEIN 7.8 gm/dL (6.4-8.2)
[2019-01-31 19:47] LABS: GLUCOSE 441 mg/dL (74-106); TROPONIN-I < 0.012 ng/mL (0.000-0.035)
[2019-01-31 19:57] LABS: INR 0.9 (0.8-3.0); PROTHROMBIN TIME 10.6 SECONDS (9.7-12.8)
[2019-01-31 20:48] LABS: COLLECTION METHOD CLEAN CATCH
[2019-01-31 21:12] LABS: HYALINE CAST >12 /lpf; MUCOUS Present /lpf; PH 5 (5-8); SQUAMOUS EPITHELIAL 0-2 /hpf; URINE APPEARANCE Hazy; URINE BACTERIA None Seen /hpf; URINE BILIRUBIN Negative (NEGATIVE); URINE BLOOD 2+ (NEGATIVE); URINE COLOR Amber; URINE GLUCOSE 3+ (NEGATIVE); URINE KETONE Negative (NEGATIVE); URINE LEUKOCYTE ESTERASE Negative (NEGATIVE); URINE NITRATE Negative (NEGATIVE); URINE PROTEIN(semi-quant) 2+ (NEGATIVE); URINE UROBILINOGEN Negative (NEGATIVE)
[2019-01-31 21:13] LABS: ACETAMINOPHEN < 10 ug/mL (10-30); ALCOHOL(ethanol),MEDICAL < 10 mg/dL; SALICYLATE < 1.0 mg/dL
[2019-01-31 21:21] LABS: TRICYCLIC ANTIDEPRESS URINE NEGATIVE
[2019-01-31 23:18] VITALS: BP 118/78; PULSE 101
== END 2019-01-31 23:18 | disposition home or self-care (01) ==
LOC: COL.ER 18:36
PROVIDERS: Emergency Medicine
DX: K52.9 Noninfective gastroenteritis and colitis, unspecified (principal); R45.851 Suicidal ideations; E11.9 Type 2 diabetes mellitus without complications; I10 Essential (primary) hypertension; E78.5 Hyperlipidemia, unspecified; F31.9 Bipolar disorder, unspecified; E66.9 Obesity, unspecified; F17.210 Nicotine dependence, cigarettes, uncomplicated; Z79.84 Long term (current) use of oral hypoglycemic drugs
CPT/HCPCS: J1815; J2405; J3010; J7030

== ENCOUNTER 2019-02-13 20:39 | Emergency (ER) | payer MEDICAID ==
[~2019-02-13] VITALS: Ht 193 cm; Wt 159.1 kg
[2019-02-13 20:54] VITALS: BP 115/72; TEMP 97.9
[2019-02-13 22:30] LABS: BASO # 0.1 (0.0-0.2); BASO % 0.8 % (0.0-2.0); EOS # 0.2 (0.0-0.7); EOS % 2.9 % (0-4.0); GRAN # 2.9 (1.4-6.5); GRAN % 46.6 % (42.2-75.2); HEMATOCRIT 54.2 % (42.0-52.0); HEMOGLOBIN 17.9 g/dl (13.5-18.0); LYMPH # 2.4 (1.2-3.4); LYMPH % 38.9 % (20.0-51.0); MEAN CELL VOLUME 89 fl (80.0-100.0); MEAN CORPUSCULAR HEMOGLOBIN 29 pg (27.0-31.0); MEAN CORPUSCULAR HGB CONC 33 g/dl (33.0-37.0); MEAN PLATELET VOLUME 11.5 fl (7.4-10.4); MONO # 0.7 (0.1-0.6); MONO % 10.5 % (1.7-9.3); PLATELET COUNT 165 K/mm3 (130-400); RED BLOOD COUNT 6.08 M/mm3 (4.20-5.60); REDCELL DISTRIBUTION WIDTH-CV 13.2 % (11.5-14.5)
[2019-02-13 22:41] LABS: ALANINE AMINOTRANSFERASE 125 U/L (21-72); ALBUMIN 4.4 gm/dL (3.5-5.0); ALKALINE PHOSPHATASE 94 U/L (50-136); ANION GAP 12 mmol/L (7-16); AST,SGOT 113 U/L (15-37); BILIRUBIN,TOTAL 1.5 mg/dL (0.0-1.0); BLOOD UREA NITROGEN 19 mg/dL (9-20); C-REACTIVE PROTEIN < 0.5 mg/dL (0.0-0.9); CALCIUM 9.7 mg/dL (8.4-10.2); CARBON DIOXIDE 30 mmol/L (22-30); CHLORIDE 90 mmol/L (98-107); CREATININE, serum 1.25 (0.66-1.25); GLUCOSE 342 mg/dL (74-106); POTASSIUM 4.2 mmol/L (3.4-5.0); SODIUM 133 mmol/L (137-145); TOTAL PROTEIN 7.9 gm/dL (6.4-8.2)
[2019-02-13 22:42] LABS: ACETONE,SERUM NEGATIVE
[2019-02-13 22:50] LABS: COLLECTION METHOD CLEAN CATCH
[2019-02-13] MEDS ORDERED: ANTIVERT 25MG25 MG PO (22:55)
[2019-02-13 22:57] LABS: HYALINE CAST >12 /lpf; MUCOUS Present /lpf; PH 5 (5-8); SQUAMOUS EPITHELIAL 0-2 /hpf; URINE APPEARANCE Hazy; URINE BACTERIA None Seen /hpf; URINE BILIRUBIN Negative (NEGATIVE); URINE BLOOD Negative (NEGATIVE); URINE COLOR Amber; URINE GLUCOSE 3+ (NEGATIVE); URINE KETONE Negative (NEGATIVE); URINE LEUKOCYTE ESTERASE Negative (NEGATIVE); URINE NITRATE Negative (NEGATIVE); URINE PROTEIN(semi-quant) 2+ (NEGATIVE)
[2019-02-14 00:21] VITALS: PULSE 95
== END 2019-02-14 00:21 | disposition home or self-care (01) ==
LOC: COL.ER 20:39
PROVIDERS: Emergency Medicine
DX: E11.9 Type 2 diabetes mellitus without complications (principal); M17.11 Unilateral primary osteoarthritis, right knee; I10 Essential (primary) hypertension; F17.210 Nicotine dependence, cigarettes, uncomplicated; Z79.84 Long term (current) use of oral hypoglycemic drugs
CPT/HCPCS: J1815; J2060; J2405; J7030

== ENCOUNTER → 2019-02-19 | Outpatient (CLI) | payer MEDICAID ==
[~2019-02-19] MED LIST changes: +ANTIVERT 25MG25 MG PO
== END ==
LOC: ZCOL.LAB 17:25
DX: R94.5 Abnormal results of liver function studies (principal)

== ENCOUNTER → 2019-02-24 | Outpatient (CLI) | payer MEDICARE, MEDICAID | LOC: MHCPAIN 09:44 | DX: G89.29 Other chronic pain (principal); M47.817 Spondylosis without myelopathy or radiculopathy, lumbosacral region; M53.3 Sacrococcygeal disorders, not elsewhere classified | CPT/HCPCS: G0463 ==

== ENCOUNTER → 2019-03-29 | Outpatient (CLI) | payer MEDICARE, MEDICAID | LOC: COL.RAD 09:39 | DX: R74.8 Abnormal levels of other serum enzymes (principal) ==

== ENCOUNTER 2019-04-02 23:39 | Emergency (ER) | payer MEDICARE, MEDICAID ==
[~2019-04-02] VITALS: Ht 193 cm; Wt 153.2 kg
[2019-04-02 23:42] VITALS: BP 134/73; PULSE 98; TEMP 98.9
[2019-04-03] MEDS ORDERED: ZANAFLEX2 MG PO (00:16)
[2019-04-03] MEDS ORDERED: MOBIC 7.5MG7.5 MG PO (00:16)
== END 2019-04-03 00:48 | disposition home or self-care (01) ==
LOC: COL.ER 23:39
DX: G89.29 Other chronic pain (principal); M54.9 Dorsalgia, unspecified; I10 Essential (primary) hypertension; E11.9 Type 2 diabetes mellitus without complications; F17.210 Nicotine dependence, cigarettes, uncomplicated; Z79.84 Long term (current) use of oral hypoglycemic drugs

== ENCOUNTER 2019-09-18 08:00 | Outpatient (RCR) | payer MEDICARE, MEDICAID ==
[2019-09-07 16:47] VITALS: BP 125/90; PULSE 82; TEMP 99
--- NOTE | 2019-09-08 08:45 | NUR ---
Here for cares. Midline intact right upper arm with chlorhexidine dressing noted. dated 09/06/2019. Midline was placed on Friday. no signs or symptoms of IV complications noted. no concerns voiced. plan to change dressing in am. voiced understanding.
[2019-09-08 09:01] VITALS: BP 152/107; PULSE 76; TEMP 98.2
[2019-09-09 07:51] VITALS: BP 128/80; PULSE 72; TEMP 98.5
--- NOTE | 2019-09-09 08:00 | NUR ---
patient here for cares. The plan is for the patient to receive IV antibiotics until September 17. Midline intact. With sterile technique right upper arm midline dressing change done with insertion site cleansed with ChloraPrep 1, chlorhexidine impregnated disc applied, Steri-Strip applied across hub, and Tegaderm applied. It was very difficult to remove dressing due to chlorhexidine impregnated sponge adhered to catheter. Also, there are no post on catheter hub to apply StatLock. no signs or symptoms of IV complications noted. No concerns voiced. We'll continue to monitor.
[2019-09-10 07:39] VITALS: BP 128/81; PULSE 88; TEMP 98.5
[2019-09-11 07:45] VITALS: BP 125/82; PULSE 74; TEMP 98.8
[2019-09-12 07:35] VITALS: BP 125/80; PULSE 75; TEMP 98.6
[2019-09-13 07:40] VITALS: BP 125/82; PULSE 77; TEMP 98.4
[2019-09-14 07:49] LABS: BASO % 0.6 % (0.0-2.0); EOS # 0.2 (0.0-0.7); EOS % 3.4 % (0-4.0); GRAN # 3.3 (1.4-6.5); GRAN % 46.2 % (42.2-75.2); HEMOGLOBIN 15.8 g/dl (13.5-18.0); LYMPH # 2.7 (1.2-3.4); LYMPH % 37.3 % (20.0-51.0); MEAN CELL VOLUME 91 fl (80.0-100.0); MEAN CORPUSCULAR HEMOGLOBIN 29 pg (27.0-31.0); MEAN CORPUSCULAR HGB CONC 32 g/dl (33.0-37.0); MEAN PLATELET VOLUME 10.2 fl (7.4-10.4); MONO # 0.9 (0.1-0.6); MONO % 12.2 % (1.7-9.3); PLATELET COUNT 221 K/mm3 (130-400); RED BLOOD COUNT 5.47 M/mm3 (4.20-5.60); REDCELL DISTRIBUTION WIDTH-CV 14.3 % (11.5-14.5)
--- NOTE | 2019-09-14 07:50 | NUR ---
unable to flush midline. With sterile technique right upper midline dressing change done with insertion site cleansed with ChloraPrep 1, chlorhexidine impregnated disc applied, Steri-Strip applied to secure catheter, and Tegaderm applied. Catheter flushed without difficulty. No other signs or symptoms of IV complications noted. No concerns voiced. Arm wrapped with John to protect catheter. Patient to continue with cares the express unit patient voiced understanding of instructions.
[2019-09-14 07:52] VITALS: BP 125/81; PULSE 71; TEMP 98.7
[2019-09-14 08:01] LABS: ALANINE AMINOTRANSFERASE 29 U/L (4-49); ALBUMIN 4.2 gm/dL (3.5-5.0); ALKALINE PHOSPHATASE 77 U/L (50-136); ANION GAP 7 mmol/L (7-16); AST,SGOT 25 U/L (15-37); BLOOD UREA NITROGEN 12 mg/dL (9-20); C-REACTIVE PROTEIN < 0.5 mg/dL (0.0-0.9); CALCIUM 9.2 mg/dL (8.4-10.2); CARBON DIOXIDE 32 mmol/L (22-30); CHLORIDE 99 mmol/L (98-107); CREATININE, serum 0.95 (0.66-1.25); GLUCOSE 95 mg/dL (74-106); POTASSIUM 4.2 mmol/L (3.4-5.0); SODIUM 137 mmol/L (137-145); TOTAL PROTEIN 7.8 gm/dL (6.4-8.2)
[2019-09-15 08:06] VITALS: BP 132/88; PULSE 76; TEMP 98.9
[2019-09-16 08:43] VITALS: BP 122/80; PULSE 72; TEMP 98.6
[2019-09-17 08:24] VITALS: BP 134/81; PULSE 73; TEMP 98.5
[~2019-09-18] VITALS: Ht 193 cm; Wt 155.5 kg
[~2019-09-18 08:00] MED LIST changes: +COLACE 100100 MG/CAP PO; +HCTZ 25MG TAB25 MG PO; +MIRALAX PA17 GM/Dose PO; +MOBIC 7.5MG7.5 MG PO; +TRULICITY1.5 MG/0.5 SQ; +ZANAFLEX2 MG PO
[2019-09-18 08:30] VITALS: BP 137/92; PULSE 66; TEMP 98.8
== END 2019-09-18 10:12 | disposition home or self-care (01) ==
LOC: EUO 08:00
PROVIDERS: Internal Medicine
DX: M86.171 Other acute osteomyelitis, right ankle and foot (principal); B95.7 Other staphylococcus as the cause of diseases classified elsewhere; Z79.899 Other long term (current) drug therapy
CPT/HCPCS: J0696

== ENCOUNTER 2019-11-24 00:09 | Emergency (ER) | payer MEDICARE, MEDICAID ==
[~2019-11-24] VITALS: Ht 193 cm; Wt 150.0 kg
[2019-11-24 00:15] VITALS: BP 155/85; PULSE 84; TEMP 97.5
[2019-11-24] MEDS ORDERED: 00186-0372-20 IH (00:20)
[2019-11-24] MEDS ORDERED: COZAAR 25MG25 MG/TAB PO (00:20)
[2019-11-24] MEDS ORDERED: HCTZ12.5TAB PO (00:30)
[2019-11-24] MEDS ORDERED: FLEXERIL 1010 MG/TAB PO (01:25)
[2019-11-24] MEDS ORDERED: NAPROXEN 3375 MG/TAB PO (01:25)
[2019-11-24] MEDS ORDERED: NORCO 325 MG-51 TAB PO (01:44)
== END 2019-11-24 01:59 | disposition home or self-care (01) ==
LOC: COL.ER 00:09
DX: M54.5 Low back pain (principal); G89.29 Other chronic pain; F17.210 Nicotine dependence, cigarettes, uncomplicated; E78.5 Hyperlipidemia, unspecified; E11.9 Type 2 diabetes mellitus without complications; I10 Essential (primary) hypertension; E66.9 Obesity, unspecified; Z68.41 Body mass index [BMI] 40.0-44.9, adult; Z79.84 Long term (current) use of oral hypoglycemic drugs
CPT/HCPCS: J1885

== ENCOUNTER 2019-12-12 15:30 | Emergency (ER) | payer MEDICARE, MEDICAID ==
[~2019-12-12] VITALS: Ht 193 cm; Wt 150.0 kg
[~2019-12-12 15:30] MED LIST changes: +COZAAR 25MG25 MG/TAB PO; +HCTZ12.5TAB PO; +NAPROXEN 3375 MG/TAB PO
[2019-12-12 15:38] VITALS: TEMP 97.7
[2019-12-12] MEDS ORDERED: CLEOCIN HCL300 MG PO (16:02)
[2019-12-12 16:22] VITALS: BP 126/76; PULSE 100
== END 2019-12-12 16:22 | disposition home or self-care (01) ==
LOC: COL.ER 15:30
DX: K04.7 Periapical abscess without sinus (principal); E11.9 Type 2 diabetes mellitus without complications; I10 Essential (primary) hypertension; F17.200 Nicotine dependence, unspecified, uncomplicated; G89.29 Other chronic pain; Z88.0 Allergy status to penicillin; Z88.2 Allergy status to sulfonamides; Z79.51 Long term (current) use of inhaled steroids; Z79.84 Long term (current) use of oral hypoglycemic drugs
CPT/HCPCS: J1885

== ENCOUNTER 2019-12-23 21:57 | Emergency (ER) | payer MEDICARE, MEDICAID ==
[~2019-12-23] VITALS: Ht 193 cm; Wt 150.0 kg
[2019-12-23] MEDS ORDERED: CLEOCIN HCL300 MG PO (22:24)
[2019-12-23 22:50] VITALS: BP 148/74; PULSE 82; TEMP 97.4
== END 2019-12-23 22:51 | disposition home or self-care (01) ==
LOC: COL.ER 21:57
DX: K04.7 Periapical abscess without sinus (principal); E11.9 Type 2 diabetes mellitus without complications; I10 Essential (primary) hypertension; Z79.51 Long term (current) use of inhaled steroids; Z79.84 Long term (current) use of oral hypoglycemic drugs
CPT/HCPCS: J2270; J2550

== ENCOUNTER 2020-06-24 18:49 | Emergency (ER) | payer MEDICARE, MEDICAID ==
[~2020-06-24] VITALS: Ht 193 cm; Wt 145.5 kg
[2020-06-24] MEDS ORDERED: FLEXERIL 1010 MG/TAB PO (20:11)
[2020-06-24 20:37] VITALS: BP 168/78; PULSE 91; TEMP 98.2
[2020-12-02] MEDS ORDERED: CLEOCIN HC150 MG/CAP PO (19:11)
== END 2020-06-24 20:37 | disposition home or self-care (01) ==
LOC: COL.ER 18:49
DX: M54.5 Low back pain (principal); G89.29 Other chronic pain; E11.9 Type 2 diabetes mellitus without complications; F17.210 Nicotine dependence, cigarettes, uncomplicated; Z88.0 Allergy status to penicillin; Z88.2 Allergy status to sulfonamides; Z79.84 Long term (current) use of oral hypoglycemic drugs; Z79.51 Long term (current) use of inhaled steroids
CPT/HCPCS: J1885

== ENCOUNTER → 2020-12-02 | Emergency (ER) | payer MEDICARE, MEDICAID ==
[~2020-12-02] VITALS: Ht 193 cm; Wt 150.0 kg
[~2020-12-02] MED LIST changes: +COZAAR100 MG PO; +GLUCOTROL 5M5 MG/TAB PO; +HUMULIN 70/3100 U/M1 SQ; +INCRUSE EL62.5 MCG/A IH; +INSULIN SYRING1 EA12 SQ; +NORVASC 10MG10 MG PO; +NOVOLIN 70/30 710 ML SQ; +PEPCID 20MG TAB20 MG PO; +REMERON 15M15 MG/TA1 PO; +[UNRECOGNIZED DRUG - OTHER] SQ
[2020-12-02 18:52] VITALS: BP 150/102; PULSE 101; TEMP 98
== END ==
LOC: COL.ER 18:42
DX: K02.9 Dental caries, unspecified (principal); M79.605 Pain in left leg; I10 Essential (primary) hypertension; E11.9 Type 2 diabetes mellitus without complications; F17.200 Nicotine dependence, unspecified, uncomplicated; Z79.899 Other long term (current) drug therapy; Z79.84 Long term (current) use of oral hypoglycemic drugs
CPT/HCPCS: J1885

== ENCOUNTER 2020-12-04 04:24 | Inpatient (IN) | payer MEDICARE, MEDICAID ==
[~2020-12-04] VITALS: Ht 193 cm; Wt 150.0 kg
[~2020-12-04 04:24] MED LIST changes: -COZAAR100 MG PO; -GLUCOTROL 5M5 MG/TAB PO; -HUMULIN 70/3100 U/M1 SQ; -INCRUSE EL62.5 MCG/A IH; -INSULIN SYRING1 EA12 SQ; -NORVASC 10MG10 MG PO; -NOVOLIN 70/30 710 ML SQ; -PEPCID 20MG TAB20 MG PO; -REMERON 15M15 MG/TA1 PO; -[UNRECOGNIZED DRUG - OTHER] SQ
[2020-12-04 04:42] LABS: BASO % 0.3 % (0.0-2.0); EOS # 0.1 (0.0-0.7); EOS % 0.8 % (0-4.0); GRAN # 5.3 (1.4-6.5); GRAN % 71.4 % (42.2-75.2); HEMATOCRIT 49.8 % (42.0-52.0); HEMOGLOBIN 15.5 g/dl (13.5-18.0); LYMPH # 1.3 (1.2-3.4); LYMPH % 18.2 % (20.0-51.0); MEAN CELL VOLUME 95 fl (80.0-100.0); MEAN CORPUSCULAR HEMOGLOBIN 30 pg (27.0-31.0); MEAN CORPUSCULAR HGB CONC 31 g/dl (33.0-37.0); MEAN PLATELET VOLUME 11.6 fl (7.4-10.4); MONO # 0.7 (0.1-0.6); MONO % 8.8 % (1.7-9.3); PLATELET COUNT 202 K/mm3 (130-400); RED BLOOD COUNT 5.24 M/mm3 (4.20-5.60); REDCELL DISTRIBUTION WIDTH-CV 13.5 % (11.5-14.5)
[2020-12-04 04:50] LABS: ACETONE,SERUM NEGATIVE
[2020-12-04 04:52] LABS: ALANINE AMINOTRANSFERASE 40 U/L (4-49); ALKALINE PHOSPHATASE 104 U/L (50-136); ANION GAP 12 mmol/L (7-16); AST,SGOT 29 U/L (15-37); BILIRUBIN,TOTAL 1.5 mg/dL (0.0-1.0); BLOOD UREA NITROGEN 14 mg/dL (9-20); CALCIUM 8.9 mg/dL (8.4-10.2); CARBON DIOXIDE 25 mmol/L (22-30); CREATININE, serum 1.51 (0.66-1.25); LIPASE 199 U/L (23-300); POTASSIUM 5.1 mmol/L (3.4-5.0); SODIUM 123 mmol/L (137-145); TOTAL PROTEIN 7.1 gm/dL (6.4-8.2)
[2020-12-04 05:00] LABS: CHLORIDE 86 mmol/L (98-107); GLUCOSE 1068 mg/dL (74-106)
[2020-12-04 05:30] LABS: COLLECTION METHOD CLEAN CATCH
[2020-12-04 05:37] LABS: MUCOUS Present /lpf; PH 5 (5-8); SQUAMOUS EPITHELIAL None Seen /hpf; URINE APPEARANCE Clear; URINE BACTERIA None Seen /hpf; URINE BILIRUBIN Negative (NEGATIVE); URINE BLOOD Negative (NEGATIVE); URINE COLOR Straw; URINE GLUCOSE 3+ (NEGATIVE); URINE KETONE Negative (NEGATIVE); URINE LEUKOCYTE ESTERASE Negative (NEGATIVE); URINE NITRATE Negative (NEGATIVE); URINE PROTEIN(semi-quant) Negative (NEGATIVE); URINE RBC None Seen /hpf; URINE UROBILINOGEN Negative (NEGATIVE)
[2020-12-04 06:51] LABS: CALCIUM 8.4 mg/dL (8.4-10.2); CREATININE, serum 1.55 (0.66-1.25); POTASSIUM 5.3 mmol/L (3.4-5.0)
[2020-12-04 09:06] LABS: CALCIUM 8.7 mg/dL (8.4-10.2); CREATININE, serum 1.53 (0.66-1.25); POTASSIUM 4.3 mmol/L (3.4-5.0)
[2020-12-04] MEDS ORDERED: GLUCOTROL 5M5 MG/TAB PO (14:29)
[2020-12-04] MEDS ORDERED: LIPITOR 40MG TA40 MG PO (14:29)
[2020-12-04] MEDS ORDERED: NORVASC 10MG10 MG PO (14:30)
[2020-12-04] MEDS ORDERED: COZAAR100 MG PO (14:30)
[2020-12-04] MEDS ORDERED: REMERON 15M15 MG/TA1 PO (14:31)
[2020-12-04 16:08] VITALS: BP 112/74; PULSE 78; TEMP 97.8
--- NOTE | 2020-12-04 16:10 | NUR ---
Pt admitted to surgical unit rm 326 from ED via WC, awake and drowsy, oriented x 3, replies appropriately to questions but falls back to sleep quickly. Pt reports all over achiness. O2 provided at 4 L/min via NC. IVF's infusing per orders through left AC site without s/s of complications. Blood sugar 590 at this time via finger stick. Provider in room and notified. Orders being entered. No further needs reported. Call light in reach.
--- NOTE | 2020-12-04 16:45 | NUR ---
Insulin drip infusing per orders to Y-site of IVF tubing. Lab just in for venous glucose verification. Lab orders in place. No needs reported. Call light in reach.
--- NOTE | 2020-12-04 17:50 | NUR ---
Pt resting on side in bed, still very drowsy, acknowledges my presence in the room but not wanting to take sched medication d/t feeling tired and asks about dinner. Dinner is ordered. Call light in reach. Bed alarm on.
--- NOTE | 2020-12-04 19:00 | NUR ---
Report with MUNIR Reyes. Pt resting in bed with eyes closed, resp even and unlabored. FSBS assessed per orders. Call light in reach. Bed alarm on.
[2020-12-04 19:46] VITALS: BP 123/71; PULSE 75; TEMP 97.9
[2020-12-04 21:25] LABS: CALCIUM 8.8 mg/dL (8.4-10.2); CREATININE, serum 1.37 (0.66-1.25); POTASSIUM 4.2 mmol/L (3.4-5.0)
[2020-12-04 23:50] VITALS: BP 142/79; PULSE 74; TEMP 98.5
--- NOTE | 2020-12-05 01:14 | NUR ---
Assessment completed, patient is drowsy. Woke up at 2000 and took his pills good. He is on Insulin drip at 8units/hr and glucose check every hour. Patient ask for food when he wake up and got sugar free apple sauce 2 cups. His BS trending down and Levemir ordered 20units once when his BS was 271. He is more awake and oriented now get up to the bathroom by himself stable in his feet. Premix fluids started with KCL of 40MEQ at 125ml/hr. His BS at 0100 is 204 Insulin drip was DC at 0110 and Novolog ordered every 4hrs. BS check was order every 4hrs as well. Patient denies pain or SOB. He complains of being hungry and water and sugar free apple sauce was given. Otherwise no further complains noted. Call light is given and within reach. Will continue to monitor.
[2020-12-05 02:13] LABS: CALCIUM 8.5 mg/dL (8.4-10.2); CREATININE, serum 1.17 (0.66-1.25); POTASSIUM 4.3 mmol/L (3.4-5.0)
[2020-12-05 03:35] VITALS: BP 132/87; PULSE 97; TEMP 98.1
[2020-12-05 07:36] LABS: HEMATOCRIT 50.4 % (42.0-52.0); HEMOGLOBIN 15.5 g/dl (13.5-18.0); MEAN CELL VOLUME 97 fl (80.0-100.0); MEAN CORPUSCULAR HEMOGLOBIN 30 pg (27.0-31.0); MEAN CORPUSCULAR HGB CONC 31 g/dl (33.0-37.0); MEAN PLATELET VOLUME 11.2 fl (7.4-10.4); PLATELET COUNT 173 K/mm3 (130-400); RED BLOOD COUNT 5.22 M/mm3 (4.20-5.60); REDCELL DISTRIBUTION WIDTH-CV 13.6 % (11.5-14.5)
[2020-12-05 07:43] VITALS: BP 125/83; PULSE 84; TEMP 98.4
[2020-12-05 07:54] LABS: CALCIUM 8.5 mg/dL (8.4-10.2); CREATININE, serum 0.95 (0.66-1.25); POTASSIUM 4.8 mmol/L (3.4-5.0)
--- NOTE | 2020-12-05 09:46 | NUR ---
PT SITTING UP IN BED. ASSISTED WITH SITTING, VSS, WORKING WITH THERAPY. PT DENIES NEEDS. AM BLOOD SUGARS 222. NONFURTHER ORDERS AT THIS TIME.
[2020-12-05 11:56] VITALS: BP 111/64; PULSE 86; TEMP 98.4
--- NOTE | 2020-12-05 13:44 | NUR ---
drawer hardware worker met with patient to discuss discharge plan. Patient lives at home in [place]. Patient's cousin Krissy [phone] is the patient's emergency contact. Patient states his PCP is Dr. Hanley and utilizes [facility] for a pharmacy. Patient reports his understanding is that he has Medicare and Medicaid and doesn't understand why he has to pay out of pocket for medications. drawer hardware worker confirmed with Juan in admissions that his Medicaid is a QMB only. Patient is concerned about being able to afford his insulin. drawer hardware worker will reach out to pharmacy as well as [facility] to investigate eligibility for a medicaid health plan. Patient does not have a DPOA-HC established and does not wish to at this time. Patient plans to discharge home. *Discharge Plan: Home*
[2020-12-05 16:45] VITALS: BP 135/60; PULSE 96; TEMP 98.6
[2020-12-05 19:25] VITALS: BP 136/79; PULSE 78; TEMP 98.5
--- NOTE | 2020-12-05 19:57 | NUR ---
NOTIFIED OF CRITICAL BG VALUE OF 413, RECHECKED BY RN AT THIS TIME. BG 460.
[2020-12-05 23:31] VITALS: BP 157/96; PULSE 87; TEMP 98.4
--- NOTE | 2020-12-06 00:14 | NUR ---
PT ALERT AND ORIENTED. PT COMPLAINS OF PAIN 9/10 IN JAW THAT RADIATES TO HEADACHE. PT HAS DIMINISHED BASES BILATERALLY AUSCULTATED. PT HAS BILATERAL EDEMA IN LEGS 1+ PITTING. PT ABLE TO AMBULATE INDEPENDENTLY IN ROOM. PT BLOOD GLUCOSE ELEVATED, BISHNU ROSARIO NOTIFIED. INSULIN GIVEN PER ORDERS. PT CALL LIGHT WITHIN REACH. PT WILL BE MONITORED FOR BG RESPONSE.
[2020-12-06 03:37] VITALS: BP 138/92; PULSE 88; TEMP 98.5
--- NOTE | 2020-12-06 05:21 | NUR ---
PT PROGRESSING WITH PLAN OF CARE. PT HAD BOUT OF ELEVATED BLOOD GLUCOSE VALUE, BISHNU ROSARIO NOTIFIED. BLOOD GLUCOSE MANAGED WITH IV INSULIN, HAS SINCE RESOLVED TO BE MANAGED WITH SCHEDULED INSULIN THIS SHIFT. BLOOD SUGAR CHECKS CONTINUE EVERY 4 HOURS. PT HAD PAIN IN JAW AND HEAD UNRESOLVED WITH TYLENOL THIS SHIFT. PT REPORTS FORICEPT DID NOT RELIEVE PAIN DURING DAY. PT GIVEN IV PAIN MEDICATIONS PER ORDERS. NO SIGNIFICANT TROPONIN VALUE NOTED IN LABS. PT ABLE TO AMBULATE IN ROOM INDEPENDENTLY. PT FREE FROM INJURY THIS SHIFT.
[2020-12-06 06:53] LABS: HEMATOCRIT 47.1 % (42.0-52.0); HEMOGLOBIN 14.9 g/dl (13.5-18.0); MEAN CELL VOLUME 94 fl (80.0-100.0); MEAN CORPUSCULAR HEMOGLOBIN 30 pg (27.0-31.0); MEAN CORPUSCULAR HGB CONC 32 g/dl (33.0-37.0); MEAN PLATELET VOLUME 11.1 fl (7.4-10.4); PLATELET COUNT 171 K/mm3 (130-400); RED BLOOD COUNT 5.03 M/mm3 (4.20-5.60); REDCELL DISTRIBUTION WIDTH-CV 13.2 % (11.5-14.5)
[2020-12-06 07:11] LABS: CALCIUM 8.5 mg/dL (8.4-10.2); CREATININE, serum 1.02 (0.66-1.25); MAGNESIUM 1.6 mg/dL (1.6-2.3); POTASSIUM 3.7 mmol/L (3.4-5.0)
[2020-12-06 08:15] VITALS: BP 124/78; PULSE 95; TEMP 98.2
[2020-12-06 11:50] VITALS: BP 117/83; PULSE 102; TEMP 97.7
[2020-12-06] MEDS ORDERED: NOVOLIN 70/30 710 ML SQ (12:48)
[2020-12-06] MEDS ORDERED: HUMULIN 70/3100 U/M1 SQ (13:51)
--- NOTE | 2020-12-06 14:04 | NUR ---
right of way worker faxed perscription along with completed eligibility attestation to the [facility] asking that patient's insulin be sent over night due to anticipated d/c tomorrow. Worker notified patient.
[2020-12-06 15:49] VITALS: BP 128/86; PULSE 92; TEMP 97.6
--- NOTE | 2020-12-06 16:41 | NUR ---
[facility] m[facility]anne Carr contacted worker to let me know due to patient having Medicare part A they cannot approve the patient. drawer hardware worker informed nursing staff, physician and patient of decision. Patient discouraged and verbalized "i just need to make a major lifestyle over haul". Worker offered to leave [facility] number for him to contact to which he denied.
--- NOTE | 2020-12-06 18:30 | NUR ---
Patient has been doing well today. Discussed checking his glucose levels at home. Discussed how to care for his diabetes at home. Discussed the difference in insulins. NO questions verbalized. He still runs in the 300 or higher range for his glucose. No other changes at this time. Call light within reach.
[2020-12-06 19:35] VITALS: BP 140/79; PULSE 94; TEMP 98.4
[2020-12-06 23:11] VITALS: BP 131/59; PULSE 87; TEMP 98.3
[2020-12-07] VITALS (7 sets, daily range): BP systolic 127–143; BP diastolic 65–99; PULSE 70–103; TEMP 97.6–98.5
--- NOTE | 2020-12-07 04:37 | NUR ---
PATIENT ALERT AND ORIENTED X4. BS WAS 464 LAST NIGHT HOSPITOLIST MADE AWARE. BS COVERED BY SLIDING SCALE AND 10 UNITS IV, REPEAT IN 1 HOUR DOWN TO 338, AT 0000 WAS 292 AND 0400 246 COVERED BY SLIDING SCALE. MORPHINE GIVEN FOR GENERAL BODY ACHE AND FIOROCET 1 TAB FOR HEADACHE. PATIENT INDEPENDENT IN ROOM GAIT STEADY. VSS. NO OTHER ISSUES OVER NIGHT. CALL LIGHT WITHIN REACH.
[2020-12-07 06:52] LABS: HEMATOCRIT 48.9 % (42.0-52.0); HEMOGLOBIN 15.8 g/dl (13.5-18.0); MEAN CELL VOLUME 93 fl (80.0-100.0); MEAN CORPUSCULAR HEMOGLOBIN 30 pg (27.0-31.0); MEAN CORPUSCULAR HGB CONC 32 g/dl (33.0-37.0); MEAN PLATELET VOLUME 11.2 fl (7.4-10.4); PLATELET COUNT 200 K/mm3 (130-400); RED BLOOD COUNT 5.24 M/mm3 (4.20-5.60)
[2020-12-07 07:00] LABS: CALCIUM 9.1 mg/dL (8.4-10.2); CREATININE, serum 0.92 (0.66-1.25); POTASSIUM 3.8 mmol/L (3.4-5.0)
[2020-12-07] MEDS ORDERED: 00186-0372-20 IH (08:32)
[2020-12-07] MEDS ORDERED: [UNRECOGNIZED DRUG - OTHER] SQ ×2 (09:12)
[2020-12-07] MEDS ORDERED: HUMULIN 70/3100 U/M1 SQ ×2 (09:19)
[2020-12-07] MEDS ORDERED: LASIX 20MG TABL20 MG PO (09:20)
--- NOTE | 2020-12-07 09:36 | NUR ---
PT SITTING UP IN BED WITH RT BREATHING TX. PT HAS BEEN DESATTING WHILE SLEEPING DROPPING INTO 70'S. PT REMOVES O2 WHEN ASLEEP. PHYSICIAN PROVIDED COUNCILING ON IMPORTANCE OF USING CPAP ORDERED AT HOME. PT ARGUMENTATIVE. AM MEDS GIVEN ORDERED. BG= 231 THIS AM. POSSIBLE DISCHARGE LATER TODAY.
[2020-12-07] MEDS ORDERED: LASIX 40MG TABL40 MG PO (13:37)
--- NOTE | 2020-12-07 18:25 | NUR ---
GAVE IV INSULIN ORDERED. ALEXANDRA LÓPEZ UPDATED AND HELD PREVIOUS SUB CUT DOSES.
--- NOTE | 2020-12-07 18:55 | NUR ---
REPORT TO KARLA AMARAL.
[2020-12-07 19:57] LABS: CALCIUM 9.1 mg/dL (8.4-10.2); CREATININE, serum 1.14 (0.66-1.25); POTASSIUM 3.6 mmol/L (3.4-5.0)
[2020-12-08 03:39] VITALS: BP 130/88; PULSE 71; TEMP 98.1
--- NOTE | 2020-12-08 04:32 | NUR ---
Assessment completed, alert,oriented independent. Denies pain or SOB. Patient is on 4L. Blood sugar was 571 and got 10Units of Novolog ordered one time at 1900. It continue to decreased and and have Novolog sliding scale scheduled. He is adamant to go home and expecting that he will be discharge today. The plan is to do VQ scan for evaluation of hypoxia. Will continue to monitor.
--- NOTE | 2020-12-08 07:20 | NUR ---
Pt was sleepy soundly during bedside shift report. Recently woke pt for VQ scan. Pt was not happy about being woke up. pt off the floor for the scan at this time
--- NOTE | 2020-12-08 09:00 | NUR ---
Pt is back in his room from radiology. He is currently eating breakfast. Blood sugars are improving, pt happy to hear is number. Pt is more pleasant now and did appologize for the way he acted when woke up. Discussed medications with him and informed him that i would call his pharmacy to get an updated list. Pt denies any needs at this time, call light within reach
[2020-12-08 09:59] VITALS: BP 135/81; PULSE 96; TEMP 98.5
[2020-12-08 12:04] LABS: BASO % 0.9 % (0.0-2.0); EOS # 0.1 (0.0-0.7); EOS % 2.8 % (0-4.0); GRAN # 2.4 (1.4-6.5); GRAN % 55.4 % (42.2-75.2); HEMATOCRIT 49.5 % (42.0-52.0); HEMOGLOBIN 16.2 g/dl (13.5-18.0); LYMPH # 1.3 (1.2-3.4); MEAN CELL VOLUME 92 fl (80.0-100.0); MEAN CORPUSCULAR HEMOGLOBIN 30 pg (27.0-31.0); MEAN CORPUSCULAR HGB CONC 33 g/dl (33.0-37.0); MEAN PLATELET VOLUME 10.7 fl (7.4-10.4); MONO # 0.4 (0.1-0.6); MONO % 9.4 % (1.7-9.3); PLATELET COUNT 213 K/mm3 (130-400); RED BLOOD COUNT 5.39 M/mm3 (4.20-5.60); REDCELL DISTRIBUTION WIDTH-CV 13.1 % (11.5-14.5)
[2020-12-08 12:07] VITALS: BP 113/70; PULSE 98; TEMP 98
[2020-12-08 12:13] LABS: CALCIUM 8.8 mg/dL (8.4-10.2); CREATININE, serum 1.24 (0.66-1.25); POTASSIUM 3.8 mmol/L (3.4-5.0)
--- NOTE | 2020-12-08 12:14 | NUR ---
Pt has continued to do well this am. Dr Servin consulted and has been in to see patient. Pt aware that he will be staying to try and figure out why he is needing O2.
--- NOTE | 2020-12-08 15:30 | NUR ---
Pt reports having more pain in his knees and his back. States that he always has pain but that anything over the counter does not work and that he usually just suffers at home. Called Dr Marin, orders received.
[2020-12-08 15:43] VITALS: BP 117/75; PULSE 97; TEMP 98
--- NOTE | 2020-12-08 19:19 | NUR ---
REPORT RECEIVED FROM NURSE BURLESON. PATIENT SITTING IN SOFA IN THE ROOM ALERT AND ORIENTED X4 EATING DINER. ON 6L NC, SOB NOTED WHILE TALKING. CALL IN REACH. WILL CONTINUE TO MONITOR.
[2020-12-08 19:46] VITALS: BP 117/86; PULSE 76; TEMP 97.5
[2020-12-08 23:24] VITALS: BP 117/66; PULSE 90; TEMP 97.3
[2020-12-09 03:43] VITALS: BP 126/80; PULSE 81; TEMP 98.4
--- NOTE | 2020-12-09 06:57 | NUR ---
Pt resting with eyes closed, even non labored breathing
[2020-12-09 06:58] LABS: POTASSIUM 4.1 mmol/L (3.4-5.0)
[2020-12-09 07:52] VITALS: BP 133/78; PULSE 81; TEMP 97.7
--- NOTE | 2020-12-09 08:16 | NUR ---
pt sitting up in bed, looking over menu for breakfast. He reports that he did not sleep well due to the pain in his left leg and his back. Pt is refusing the tylenol and motrin as he states it doesn't help at all and there is no use in wasting it. No other needs verbalized, call light within reach
[2020-12-09 09:26] LABS: CALCIUM 9.5 mg/dL (8.4-10.2); CREATININE, serum 1.19 (0.66-1.25)
--- NOTE | 2020-12-09 11:29 | NUR ---
PT RESTING IN BED. O2 TURNED OFF SPO2 QUICKLY DROPPED TO 83% O2 BACK ON @ 5 LPM. SPO2 UP TO 91% AFTER SEVERAL MINUTES.
[2020-12-09 12:00] VITALS: BP 105/52; PULSE 77; TEMP 98.2
--- NOTE | 2020-12-09 13:00 | NUR ---
Pt blood sugar was initally 400, pt did have a late breakfast. Notified BISHNU Salcido when accucheck was taken. Rechecked now and results was 354.
[2020-12-09 15:33] VITALS: BP 139/77; PULSE 91; TEMP 97.7
--- NOTE | 2020-12-09 15:39 | NUR ---
PCT in to take vital signs. Pt had taken his O2 off recently. O2 sats 72% initially. After O2 on for a few minutes, O2 up to 92% on 5L. Pt getting grumpy about having to take insulin and follow the diabetic diet. Informed him that proper diet and exercise might help decrease the amount of insulin he has to take. Pt mumbled and then rolled over and closed his eyes. Informed pt that he needs to start walking in the halls more and that we would assist with an O2 tank
[2020-12-09 20:08] VITALS: BP 139/85; PULSE 75; TEMP 97.5
--- NOTE | 2020-12-09 22:58 | NUR ---
PATIENT RESTING IN BED ALERT AND ORIENTED X4. BLOOD SUGAR 492 HOSPITALIST BISHNU ROSARIO MADE AWARE, CONVER PER SLIDING SCALE AND 10 UNIT OR REGULAR INSULIN IV. VSS, ON NO APPARENT DISCOMFORT WILL CONTINUE TO MONITOR.
[2020-12-10] VITALS (7 sets, daily range): BP systolic 115–151; BP diastolic 75–98; PULSE 71–83; TEMP 97.6–98.6
[2020-12-10 07:37] LABS: CREATININE, serum 1.29 (0.66-1.25); POTASSIUM 3.9 mmol/L (3.4-5.0)
--- NOTE | 2020-12-10 07:56 | NUR ---
PT RESTING IN BED SPO2 OB 3 LPM 92-93%. O2 OFF SPO2 86% O2 BACK ON @ 3 LPM
--- NOTE | 2020-12-10 09:39 | NUR ---
PT SITTING UP IN BED. EATING AND DRINKING WELL. AM MEDS GIVEN ORDERED. PT DENIES NEEDS AT THIS TIME. BLOOD GLUCOSE 255 THIS AM.
--- NOTE | 2020-12-10 21:54 | NUR ---
Pt has been ok. Pain rated 2/10. Currently on 3 L of O2. Will continue to monitor.
[2020-12-11 04:22] VITALS: BP 116/73; PULSE 81; TEMP 98
--- NOTE | 2020-12-11 07:00 | NUR ---
PT RESTING IN BED WATCHING TV. NO NEEDS AT THIS TIME. WILL CONTINUE TO MONITOR.
[2020-12-11 07:04] LABS: BASO % 0.7 % (0.0-2.0); EOS # 0.2 (0.0-0.7); EOS % 4.1 % (0-4.0); GRAN # 2.5 (1.4-6.5); GRAN % 42.9 % (42.2-75.2); HEMATOCRIT 49.4 % (42.0-52.0); HEMOGLOBIN 15.5 g/dl (13.5-18.0); LYMPH # 2.5 (1.2-3.4); LYMPH % 42.6 % (20.0-51.0); MEAN CELL VOLUME 95 fl (80.0-100.0); MEAN CORPUSCULAR HEMOGLOBIN 30 pg (27.0-31.0); MEAN CORPUSCULAR HGB CONC 31 g/dl (33.0-37.0); MEAN PLATELET VOLUME 10.8 fl (7.4-10.4); MONO # 0.6 (0.1-0.6); MONO % 9.5 % (1.7-9.3); PLATELET COUNT 204 K/mm3 (130-400); RED BLOOD COUNT 5.18 M/mm3 (4.20-5.60); REDCELL DISTRIBUTION WIDTH-CV 13.4 % (11.5-14.5)
[2020-12-11 07:24] LABS: CREATININE, serum 1.14 (0.66-1.25); POTASSIUM 4.1 mmol/L (3.4-5.0)
[2020-12-11 08:00] VITALS: BP 128/71; PULSE 77; TEMP 97.7
[2020-12-11] MEDS ORDERED: INCRUSE EL62.5 MCG/A IH (09:01)
[2020-12-11] MEDS ORDERED: INSULIN SYRING1 EA12 SQ (09:01)
[2020-12-11] MEDS ORDERED: NOVOLIN 70/30 710 ML SQ (09:01)
--- NOTE | 2020-12-11 10:00 | NUR ---
fruit farmworker faxed voucher to [facility] for Insulin. [facility] will have it in by this afternoon. Patient receives his Cpap through [facility]. Referral sent to [facility] for patient's home O2 and they should have it delivered to the hospital by 1400.
[2020-12-11 11:54] VITALS: BP 113/63; PULSE 76; TEMP 98.4
--- NOTE | 2020-12-11 15:30 | NUR ---
ALL DISCHARGE INSTRUCTIONS DISCUSSED WITH PT. ALL QUESTIONS ANSWERED. INSTRUCTED ON HOME OXYGEN AND PRESCRIPTIONS. IV DC'D. PT WHEELED OUT WITH HOME OXYGEN. PT TRANSPORTED BY [facility] TO DELIVER INSULIN AT 1600.
== END 2020-12-11 15:30 | disposition home or self-care (01) | DRG 637 ==
LOC: COL.ER 04:24 → SURG 10:10
PROVIDERS: Emergency Medicine; Internal Medicine Sleep Medicine; Physician Assistant; Student in an Organized Health Care Education/Training Program; ADMIT Internal Medicine
DX: E11.00 Type 2 diabetes mellitus with hyperosmolarity without nonketotic hyperglycemic-hyperosmolar coma (NKHHC) (principal); J96.01 Acute respiratory failure with hypoxia; I50.21 Acute systolic (congestive) heart failure; N17.9 Acute kidney failure, unspecified; J98.11 Atelectasis; K12.2 Cellulitis and abscess of mouth; E66.2 Morbid (severe) obesity with alveolar hypoventilation; I13.0 Hypertensive heart and chronic kidney disease with heart failure and stage 1 through stage 4 chronic kidney disease, or unspecified chronic kidney disease; Z68.41 Body mass index [BMI] 40.0-44.9, adult; E78.5 Hyperlipidemia, unspecified; F31.9 Bipolar disorder, unspecified; E87.5 Hyperkalemia; J44.9 Chronic obstructive pulmonary disease, unspecified; G43.909 Migraine, unspecified, not intractable, without status migrainosus; E86.0 Dehydration; N18.9 Chronic kidney disease, unspecified; K02.9 Dental caries, unspecified; M79.605 Pain in left leg; R91.1 Solitary pulmonary nodule; Z89.411 Acquired absence of right great toe; Z89.421 Acquired absence of other right toe(s); Z87.891 Personal history of nicotine dependence; Z88.0 Allergy status to penicillin; Z88.2 Allergy status to sulfonamides; Z88.1 Allergy status to other antibiotic agents; Z79.4 Long term (current) use of insulin; Z79.899 Other long term (current) drug therapy
CPT/HCPCS: 99223-AI; 99232-AI; 99233-AI; 99239; A9284; A9540; A9567; J1644; J1815; J1885; J1940; J2270; J3480; J7030; J7120; Q9967

== ENCOUNTER 2020-12-19 22:09 | Emergency (ER) | payer MEDICARE, MEDICAID ==
[~2020-12-19] VITALS: Ht 193 cm; Wt 172.7 kg
[~2020-12-19 22:09] MED LIST changes: +COZAAR100 MG PO; +GLUCOTROL 5M5 MG/TAB PO; +HUMULIN 70/3100 U/M1 SQ; +INCRUSE EL62.5 MCG/A IH; +INSULIN SYRING1 EA12 SQ; +NORVASC 10MG10 MG PO; +NOVOLIN 70/30 710 ML SQ; +REMERON 15M15 MG/TA1 PO; +[UNRECOGNIZED DRUG - OTHER] SQ
[2020-12-19 22:12] VITALS: TEMP 97.8
[2020-12-19 23:15] LABS: BASO % 0.3 % (0.0-2.0); EOS # 0.2 (0.0-0.7); EOS % 1.6 % (0-4.0); GRAN # 6.9 (1.4-6.5); GRAN % 73.2 % (42.2-75.2); HEMATOCRIT 51.7 % (42.0-52.0); HEMOGLOBIN 16.6 g/dl (13.5-18.0); LYMPH # 1.5 (1.2-3.4); LYMPH % 15.4 % (20.0-51.0); MEAN CELL VOLUME 92 fl (80.0-100.0); MEAN CORPUSCULAR HEMOGLOBIN 30 pg (27.0-31.0); MEAN CORPUSCULAR HGB CONC 32 g/dl (33.0-37.0); MEAN PLATELET VOLUME 10.6 fl (7.4-10.4); MONO # 0.9 (0.1-0.6); MONO % 9.3 % (1.7-9.3); PLATELET COUNT 214 K/mm3 (130-400); RED BLOOD COUNT 5.63 M/mm3 (4.20-5.60); REDCELL DISTRIBUTION WIDTH-CV 13.3 % (11.5-14.5)
[2020-12-19 23:29] LABS: ALANINE AMINOTRANSFERASE 84 U/L (4-49); ALBUMIN 4.2 gm/dL (3.5-5.0); ALKALINE PHOSPHATASE 92 U/L (50-136); ANION GAP 8 mmol/L (7-16); AST,SGOT 59 U/L (15-37); BILIRUBIN,TOTAL 0.7 mg/dL (0.0-1.0); BLOOD UREA NITROGEN 10 mg/dL (9-20); CALCIUM 9.1 mg/dL (8.4-10.2); CARBON DIOXIDE 30 mmol/L (22-30); CHLORIDE 98 mmol/L (98-107); GLUCOSE 201 mg/dL (74-106); LIPASE 94 U/L (23-300); POTASSIUM 4.2 mmol/L (3.4-5.0); SODIUM 135 mmol/L (137-145); TOTAL PROTEIN 7.3 gm/dL (6.4-8.2)
[2020-12-19 23:45] LABS: TROPONIN-I < 0.012 ng/mL (0.000-0.035)
[2020-12-20 00:33] LABS: COLLECTION METHOD CLEAN CATCH
[2020-12-20 00:38] LABS: PH 6 (5-8); SQUAMOUS EPITHELIAL 0-2 /hpf; URINE APPEARANCE Clear; URINE BACTERIA None Seen /hpf; URINE BILIRUBIN Negative (NEGATIVE); URINE BLOOD Negative (NEGATIVE); URINE COLOR Yellow; URINE GLUCOSE Negative (NEGATIVE); URINE KETONE Negative (NEGATIVE); URINE LEUKOCYTE ESTERASE Negative (NEGATIVE); URINE NITRATE Negative (NEGATIVE); URINE PROTEIN(semi-quant) Negative (NEGATIVE); URINE RBC 0-2 /hpf; URINE UROBILINOGEN Negative (NEGATIVE)
[2020-12-20] MEDS ORDERED: PEPCID 20MG TAB20 MG PO (00:49)
[2020-12-20 01:20] VITALS: BP 122/78; PULSE 92
== END 2020-12-20 01:20 | disposition home or self-care (01) ==
LOC: COL.ER 22:09
PROVIDERS: Emergency Medicine
DX: R10.13 Epigastric pain (principal); R74.01 Elevation of levels of liver transaminase levels; R74.02 Elevation of levels of lactic acid dehydrogenase [LDH]; E11.9 Type 2 diabetes mellitus without complications; I10 Essential (primary) hypertension; E78.5 Hyperlipidemia, unspecified; F17.210 Nicotine dependence, cigarettes, uncomplicated; Z79.4 Long term (current) use of insulin; Z79.899 Other long term (current) drug therapy
CPT/HCPCS: Q9967

== ENCOUNTER → 2022-05-30 | Outpatient (CLI) | payer MEDICARE ==
[~2022-05-30] MED LIST changes: +BUMEX 1MG TA1 MG/TA1 PO; +PEPCID 20MG TAB20 MG PO; +TRULICITY3 MG/0.5 M SQ
== END ==
LOC: MHCPAIN 09:08
DX: M47.816 Spondylosis without myelopathy or radiculopathy, lumbar region (principal); M54.50 Low back pain, unspecified; M53.3 Sacrococcygeal disorders, not elsewhere classified